=== PATIENT | female | born 1950 | race African-American/Black ===

== ENCOUNTER 2018-06-04 13:12 | Emergency (ER) | payer OTHER ==
[2018-06-04] MEDS: ACETAMINOPHEN 325 MG TAB PO (17:32)
[2018-06-04] MEDS: DIAZEPAM 5 MG TAB PO (17:32)
== END 2018-06-04 18:35 | disposition home or self-care (01) ==
LOC: E/R 13:12
DX: B34.9 Viral infection, unspecified (principal); M79.12 Myalgia of auxiliary muscles, head and neck; R40.2142 Coma scale, eyes open, spontaneous, at arrival to emergency department; R40.2252 Coma scale, best verbal response, oriented, at arrival to emergency department; R40.2362 Coma scale, best motor response, obeys commands, at arrival to emergency department; I10 Essential (primary) hypertension; Z79.82 Long term (current) use of aspirin; Z87.891 Personal history of nicotine dependence; Z96.659 Presence of unspecified artificial knee joint; Z79.84 Long term (current) use of oral hypoglycemic drugs
CPT/HCPCS: 99283

== ENCOUNTER 2018-07-23 17:51 | Emergency (ER) | payer OTHER ==
[2018-07-23] MEDS: KETOROLAC 30 MG INJ IM (19:18)
== END 2018-07-23 19:39 | disposition home or self-care (01) ==
LOC: FTE 17:51
DX: M54.42 Lumbago with sciatica, left side (principal); F17.210 Nicotine dependence, cigarettes, uncomplicated; Z79.82 Long term (current) use of aspirin; Z79.84 Long term (current) use of oral hypoglycemic drugs; Z96.659 Presence of unspecified artificial knee joint
CPT/HCPCS: 96372; 99284-25

== ENCOUNTER 2018-07-25 10:19 | Emergency (ER) | payer OTHER ==
[2018-07-25 11:16] LABS: ADD MAN DIFF? NO
[2018-07-25 11:26] LABS: BASOPHILS % 0.7 % (0.0-2.0); EOSINOPHILS # 0.1 10^3/ul (0.0-0.5); EOSINOPHILS % 1.8 % (0.0-7.0); HEMATOCRIT 34.9 % (37.0-47.0); HEMOGLOBIN 10.5 g/dl (12.0-16.0); LYMPHOCYTES # 1.9 10^3/ul (0.8-2.9); LYMPHOCYTES % 32.8 % (15.0-51.0); MEAN CORPUSCULAR HEMOGLOBIN 25.1 pg (29.0-33.0); MEAN CORPUSCULAR HGB CONC 30.1 g/dl (32.0-37.0); MEAN CORPUSCULAR VOLUME 83.3 fl (82.0-101.0); MEAN PLATELET VOLUME 10.7 fl (7.4-10.4); MONOCYTE # 0.6 10^3/ul (0.3-0.9); MONOCYTES % 10.2 % (0.0-11.0); NEUTROPHIL # 3.1 10^3/ul (1.6-7.5); NEUTROPHILS % 54.3 % (39.0-77.0); PLATELET COUNT 308 10^3/UL (140-415); RED BLOOD COUNT 4.19 10^6/ul (4.20-5.40); RED CELL DISTRIBUTION WIDTH 16.4 % (11.5-14.5)
[2018-07-25 11:26] LABS: WHITE BLOOD COUNT 5.7 10^3/ul (4.8-10.8)
[2018-07-25] MEDS: ONDANSETRON 4 MG INJ IV (11:27)
[2018-07-25] MEDS: morphine 4 MG/ML VIAL IV (11:27)
[2018-07-25] MEDS: DEXAMETHASONE 10 MG/ML 1 ML INJ IV (11:27)
[2018-07-25] MEDS: SOD CHLORIDE 0.9% 500 ML IV (11:28)
[2018-07-25 11:47] LABS: ALANINE AMINOTRANSFERASE 19 IU/L (13-69); ALBUMIN 4.2 g/dl (3.3-4.9); ALBUMIN/GLOBULIN RATIO 1.16; ALKALINE PHOSPHATASE 93 IU/L (42-121); ANION GAP 11 (5-13); ASPARTATE AMINO TRANSFERASE 25 IU/L (15-46); BLOOD UREA NITROGEN 20 mg/dl (7-20); CALCIUM 10.3 mg/dl (8.4-10.2); CARBON DIOXIDE 28 mmol/L (21-31); CHLORIDE 103 mmol/L (97-110); CREATININE 1.03 mg/dl (0.44-1.00); Estimated GFR > 60 mL/min (>60); GLUCOSE 94 mg/dl (70-220); LIPASE 89 U/L (23-300); POTASSIUM 3.7 mmol/L (3.5-5.1); SODIUM 142 mmol/L (135-144); TOTAL PROTEIN 7.8 g/dl (6.1-8.1)
== END 2018-07-25 13:53 | disposition home or self-care (01) ==
LOC: E/R 10:19
DX: R10.32 Left lower quadrant pain (principal); F17.210 Nicotine dependence, cigarettes, uncomplicated; Z79.82 Long term (current) use of aspirin; Z96.659 Presence of unspecified artificial knee joint
CPT/HCPCS: 74176; 80053; 83690; 85025; 96374; 96375; 99285-25

== ENCOUNTER 2018-10-07 01:13 | Emergency (ER) | payer OTHER ==
[2018-10-07] MEDS ORDERED: SOD CHLORIDE 0.9% 500 ML IV (01:52)
[2018-10-07] MEDS ORDERED: morphine 4 MG/ML VIAL IV (01:57)
[2018-10-07] MEDS ORDERED: ONDANSETRON 4 MG INJ IV (01:57)
[2018-10-07] MEDS: NAPROXEN 500 MG TAB PO (02:42)
== END 2018-10-07 03:57 | disposition home or self-care (01) ==
LOC: E/R 01:13
DX: S69.92XA Unspecified injury of left wrist, hand and finger(s), initial encounter (principal); F17.210 Nicotine dependence, cigarettes, uncomplicated; I10 Essential (primary) hypertension; X50.0XXA Overexertion from strenuous movement or load, initial encounter; Y92.9 Unspecified place or not applicable; Z79.82 Long term (current) use of aspirin; Z96.652 Presence of left artificial knee joint
CPT/HCPCS: 73110; 73110-LT; 99283-25

== ENCOUNTER 2018-10-28 11:11 | Emergency (ER) | payer OTHER ==
[2018-10-28] MEDS: BENZONATATE 100 MG CAP PO (17:33)
== END 2018-10-28 18:23 | disposition home or self-care (01) ==
LOC: E/R 11:11
DX: R05 Cough (principal); J45.909 Unspecified asthma, uncomplicated; F17.210 Nicotine dependence, cigarettes, uncomplicated; R07.9 Chest pain, unspecified; Z79.82 Long term (current) use of aspirin; Z96.659 Presence of unspecified artificial knee joint
CPT/HCPCS: 71045; 93005; 99284-25

== ENCOUNTER 2018-12-16 10:10 | Day surgery (SDC) | payer OTHER ==
[2018-12-16] MEDS ORDERED: IODIXANOL LOCM 100 ML BTL (11:57)
[2018-12-16] MEDS ORDERED: MIDAZOLAM 1 MG/ML 2 ML INJ (11:57)
[2018-12-16] MEDS ORDERED: LIDOCAINE 1% (MDV) 20 ML INJ (11:57)
[2018-12-16] MEDS ORDERED: HEPARIN 1000 UNITS/NS (A-LINE) 1,000 ML (11:57)
[2018-12-16] MEDS ORDERED: FENTAnyl 50 MCG/ML VIAL (11:57)
[2018-12-16] MEDS ORDERED: ONDANSETRON 4 MG INJ IV (13:30)
[2018-12-16] MEDS: HYDROCODONE/APAP (5/325) TAB PO (15:34)
== END 2018-12-16 16:39 | disposition home or self-care (01) ==
LOC: CCL 10:10 → SDS 10:10 → CCL 16:39
DX: I73.9 Peripheral vascular disease, unspecified (principal); I10 Essential (primary) hypertension; M06.9 Rheumatoid arthritis, unspecified; F17.200 Nicotine dependence, unspecified, uncomplicated
CPT/HCPCS: 36200; 75630; 82962; 93005

== ENCOUNTER 2019-04-28 11:49 | Emergency (ER) | payer OTHER ==
[2019-04-28] MEDS: predniSONE 20 MG TAB PO (13:17)
[2019-04-28] MEDS: ALBUTEROL 0.083% (NEB) 2.5 MG/3 ML AMP INH (13:20)
[2019-04-28] MEDS: IPRATROPIUM (NEB) 0.5 MG/2.5 ML AMP INH (13:20)
== END 2019-04-28 15:09 | disposition home or self-care (01) ==
LOC: E/R 11:49
DX: J45.901 Unspecified asthma with (acute) exacerbation (principal); I10 Essential (primary) hypertension; Z96.651 Presence of right artificial knee joint; Z79.82 Long term (current) use of aspirin
CPT/HCPCS: 36415; 71045; 80048; 83880; 84484; 85025; 85610; 85730; 93005; 94664; 99285-25